=== PATIENT | female | born 1970 | race Caucasian/White ===

== ENCOUNTER 2021-08-25 07:53 | Emergency (ER) | payer OTHER, BC ==
[~2021-08-25] VITALS: Ht 177.8 cm; Wt 142.6 kg
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
[2021-08-25 09:35] VITALS: BP 153/105
== END 2021-08-25 09:44 | disposition home or self-care (01) ==
LOC: ER 07:53
DX: S13.4XXA Sprain of ligaments of cervical spine, initial encounter (principal); R03.0 Elevated blood-pressure reading, without diagnosis of hypertension; M06.9 Rheumatoid arthritis, unspecified; V49.49XA Driver injured in collision with other motor vehicles in traffic accident, initial encounter; Y93.I9 Activity, other involving external motion; Y92.89 Other specified places as the place of occurrence of the external cause; Y99.8 Other external cause status
CPT/HCPCS: 70450; 72125; 99284